=== PATIENT | female | born 1940 | race Two or more races ===

== ENCOUNTER 2018-02-02 16:19 | Emergency (ER) | payer OTHER ==
[~2018-02-02] VITALS: Ht 152.4 cm; Wt 58.5 kg
[~2018-02-02 16:19] MED LIST: ACTIGALL300 MG; LEVAQUIN500 MG PO; Mucinex 600 MG TABLET.SA PO; RAYOS5 MG PO
== END 2018-02-03 11:32 | disposition home or self-care (01) ==
LOC: ER 16:19
DX: J45.998 Other asthma (principal)

== ENCOUNTER 2020-06-07 11:29 | Outpatient (CLI) | payer OTHER | END 2020-06-07 11:37 | disposition home or self-care (01) | LOC: RAD 11:29 | PROVIDERS: ATTEND Internal Medicine Pulmonary Disease | DX: J43.2 Centrilobular emphysema (principal); R06.02 Shortness of breath; J30.1 Allergic rhinitis due to pollen ==